=== PATIENT | male | born 1995 | race Caucasian/White ===

== ENCOUNTER 2023-07-17 09:34 | Outpatient (CLI) | payer OTHER ==
[2023-07-17] MEDS ORDERED: iohexol 300mg/ml 100ml inj. ONE (10:13)
== END 2023-07-17 23:59 | disposition home or self-care (01) ==
LOC: 64 CT 09:34
PROVIDERS: ATTEND Family Medicine
DX: K40.90 Unilateral inguinal hernia, without obstruction or gangrene, not specified as recurrent (principal)
CPT/HCPCS: 74176; 74177; Q9967